=== PATIENT | male | born 1995 | race Caucasian/White ===

== ENCOUNTER 2018-04-28 11:25 | Emergency (ER) | payer MEDICAID ==
[~2018-04-28] VITALS: Wt 60.6 kg
[2018-04-28 11:27] VITALS: BP 120/64; PULSE 57; RESP 18
[2018-04-28] MEDS ORDERED: ONDANSETRON (ODT) 4 MG TAB ODT STA (11:58)
--- NOTE | 2018-04-28 11:58 | ERD ---
ER Documentation Chief Complaint Chief Complaint BODY ACHES, CHIIS, WEK X 2 DAYS, CONGESTED HPI 22-year-old male, previously healthy, presents to the emergency department, complaining of 2 days with dizziness, described as a spinning sensation, associated with nausea. The patient also reports runny nose, sore throat, body aches and chest congestion. He denies fevers, no chills, no blurred vision, no distal weakness, numbness or tingling. ROS All systems reviewed and are negative except as per history of present illness. Medications Home Meds Active Scripts Ondansetron Hcl* (Zofran*) 4 Mg Tablet, 4 MG PO Q8H PRN for NAUSEA AND/OR VOMITING, #12 TAB Prov:CHRIS JORDAN MD 04/28/18 Meclizine Hcl* (Antivert*) 12.5 Mg Tab, 12.5 MG PO Q6H PRN for DIZZINESS, #20 TAB Prov:CHRIS JORDAN MD 04/28/18 Allergies Allergies: Coded Allergies: No Known Allergy (Unverified , 04/28/18) PMhx/Soc History of Surgery: Yes (Heart surgery due to murmur) Anesthesia Reaction: No Hx Neurological Disorder: No Hx Respiratory Disorders: No Hx Cardiac Disorders: No Hx Psychiatric Problems: No Hx Miscellaneous Medical Probl: No Hx Alcohol Use: No Hx Substance Use: No Hx Tobacco Use: No Smoking Status: Never smoker FmHx Family History: No diabetes, No coronary disease Physical Exam Vitals Vital Signs Date Temp Pulse Resp B/P (MAP) Pulse Ox O2 O2 Flow FiO2 Time Delivery Rate 04/28/18 98.1 57 18 120/64 99 11:27 (82) Physical Exam Patient is in no acute distress, vital signs stable. Alert and fully oriented. HEENT: PERRLA, EOMI, Sclera and conjunctiva appear normal, Canals clear, tympanic membranes WNL. THROAT: Normal oropharynx. NECK: Supple, No lymphadenopathy. Full ROM without pain or tenderness. HEART: RRR, no rubs, murmurs, clicks or gallops. LUNGS: Clear to auscultation. ABDOMEN: Soft, non-tender without masses or hepatosplenomegaly. EXTREMITIES: No edema bilaterally. BACK: Full ROM, no deformity, normal back exam NEURO: Cranial nerves grossly intact, no motor or sensory deficit. Mild horizontal nystagmus while the patient was looking straight ahead with mildly abnormal head impulse test. Result Diagram: 04/28/18 1209 04/28/18 1209 Results 24 hrs Laboratory Tests Test 04/28/18 12:06 04/28/18 12:09 Urine Color YELLOW Urine Clarity SLIGHTLY CLOUDY Urine pH 8.0 Urine Specific [place] 1.014 Urine Ketones NEGATIVE mg/dL Urine Nitrite NEGATIVE mg/dL Urine Bilirubin NEGATIVE mg/dL Urine Urobilinogen NEGATIVE mg/dL Urine Leukocyte Esterase NEGATIVE Tracy/ul Urine Microscopic RBC 0 /HPF Urine Microscopic WBC 1 /HPF Urine Bacteria FEW /HPF Urine Hemoglobin NEGATIVE mg/dL Urine Glucose NEGATIVE mg/dL Urine Total Protein NEGATIVE mg/dl White Blood Count 6.4 10^3/ul Red Blood Count 5.41 10^6/ul Hemoglobin 16.5 g/dl Hematocrit 48.1 % Mean Corpuscular Volume 88.9 fl Mean Corpuscular Hemoglobin 30.5 pg Mean Corpuscular Hemoglobin Concent 34.3 g/dl Red Cell Distribution Width 12.0 % Platelet Count 256 10^3/UL Mean Platelet Volume 10.0 fl Immature Granulocytes % 0.500 % Neutrophils % 54.8 % Lymphocytes % 37.4 % Monocytes % 6.0 % Eosinophils % 0.8 % Basophils % 0.5 % Nucleated Red Blood Cells % 0.0 /100WBC Immature Granulocytes # 0.030 10^3/ul Neutrophils # 3.5 10^3/ul Lymphocytes # 2.4 10^3/ul Monocytes # 0.4 10^3/ul Eosinophils # 0.1 10^3/ul Basophils # 0.0 10^3/ul Nucleated Red Blood Cells # 0.0 10^3/ul Sodium Level 141 mmol/L Potassium Level 4.0 mmol/L Chloride Level 98 mmol/L Carbon Dioxide Level 31 mmol/L Anion Gap 12 Blood Urea Nitrogen 11 mg/dl Creatinine 0.79 mg/dl Est Glomerular Filtrat Rate mL/min > 60 mL/min Glucose Level 99 mg/dl Calcium Level 9.7 mg/dl Current Medications Medications Dose Sig/Sissy Start Time Status Last (Trade) Ordered Route PRN Stop Time Admin Dose Reason Admin Meclizine 25 mg ONCE ONCE 04/28/18 DC 04/28/18 HCl PO 12:00 04/28/18 12:17 (Antivert) 12:01 Ondansetron 4 mg ONCE STAT 04/28/18 DC 04/28/18 HCl (Zofran ODT 11:58 04/28/18 12:17 Odt) 12:00 Procedures/MDM Vital signs stable, neurovascular exam revealed horizontal nystagmus while the patient was looking straight ahead with mildly abnormal head impulse test. Differential diagnosis include but not limited to dehydration, cardiac arrhythmia, , Mnire's disease, vestibular neuronitis, migraine, vertigo, side effects of the medications, hypoglycemia. Less likely but is still a possibility, intracranial hemorrhage, ischemic stroke, RUG SHAMPOOER neoplasm. Labs: CBC: normal, BMP: normal kidney function, normal electrolytes. Glucose: normal Physical examination and clinical presentation consistent most likely with positional vertigo During the ED course the patient remained stable, no new complaints. Results and clinical impression discussed with patient who agrees with management. The patient is stable to be treated outpatient and will be discharged home with instructions to follow up with the primary care provider in the next 48h. If symptoms persist, worsen or new symptoms develop, then patient should return to the ED immediately. Instructions explained and given directly by me to the patient with acknowledgment and demonstrated understanding. Disclaimer: Inadvertent spelling and grammatical errors are likely due to EHR/dictation software use and do not reflect on the overall quality of patient care. Also, please note that the electronic time recorded on this note does not necessarily reflect the actual time of the patient encounter. Departure Diagnosis: Primary Impression: Positional vertigo Condition: Stable Patient Instructions: Inner Ear Problems: Causes of Dizziness (Vertigo) Additional Instructions: Thank you very much for allowing us to participate in your care. Your health and safety is our top priority at [facility]. Call your primary care doctor TOMORROW for an appointment during the next 2-4 days and bring all the information and medications prescribed. Have prescriptions filled and follow precisely the directions on the label. If the symptoms get worse and your provider is unavailable, return to the Emergency Department immediately. CHRIS JORDAN MD Apr 28, 2018 11:58
[2018-04-28] MEDS ORDERED: MECLIZINE 12.5 MG TAB PO ONE (12:00)
[2018-04-28] MEDS ORDERED: ONDA4TAB8 PO (12:09)
[2018-04-28] MEDS ORDERED: MECL12.574 PO (12:09)
== END 2018-04-28 13:22 | disposition home or self-care (01) ==
LOC: FTE 11:25
DX: R42 Dizziness and giddiness (principal); R11.0 Nausea
CPT/HCPCS: 36415; 80048; 81001; 85025; Z7502; Z7610; 81003; 99283